=== PATIENT | male | born 1990 | race Caucasian/White ===

== ENCOUNTER 2016-09-18 21:03 | Emergency (ER) | payer OTHER | END 2016-09-18 23:45 | disposition home or self-care (01) | LOC: ER1 21:03 | DX: Z53.21 Procedure and treatment not carried out due to patient leaving prior to being seen by health care provider (principal) ==

== ENCOUNTER 2016-10-22 14:19 | Emergency (ER) | payer OTHER ==
[2016-10-22 20:09] LABS: RED BLOOD COUNT 5.1 M/UL (4.20-5.50); WHITE BLOOD COUNT 10.2 K/UL (4.5-11.0)
[2016-10-22 20:24] LABS: BUN/CREATININE RATIO 15 (0-10)
== END 2016-10-22 21:35 | disposition home or self-care (01) ==
LOC: ER1 14:19
PROVIDERS: Emergency Medicine
DX: R11.2 Nausea with vomiting, unspecified (principal); I48.91 Unspecified atrial fibrillation; I10 Essential (primary) hypertension; Z88.1 Allergy status to other antibiotic agents; Z88.8 Allergy status to other drugs, medicaments and biological substances; Z79.899 Other long term (current) drug therapy
CPT/HCPCS: 36415; 80053; 81001; 83690; 85025; 87086; 93005; 99283; J1200; Q0163

== ENCOUNTER 2016-11-20 14:34 | Emergency (ER) | payer OTHER ==
[2016-11-20 16:43] LABS: HEMOGLOBIN 15.1 gm/dl (14.0-17.5); RED BLOOD COUNT 5.16 M/UL (4.20-5.50); WHITE BLOOD COUNT 8.3 K/UL (4.5-11.0)
[2016-11-20 17:06] LABS: BUN/CREATININE RATIO 21 (0-10)
== END 2016-11-20 17:42 | disposition home or self-care (01) ==
LOC: ER1 14:34
PROVIDERS: Physician Assistant
DX: R00.2 Palpitations (principal); R06.02 Shortness of breath; R07.9 Chest pain, unspecified; R61 Generalized hyperhidrosis; I48.91 Unspecified atrial fibrillation; J45.909 Unspecified asthma, uncomplicated; Z88.1 Allergy status to other antibiotic agents; Z88.8 Allergy status to other drugs, medicaments and biological substances; Z79.899 Other long term (current) drug therapy
CPT/HCPCS: 36415; 71010; 80053; 82550; 82553; 83874; 84484; 85025; 85379; 93005; 99285

== ENCOUNTER 2016-11-27 02:29 | Emergency (ER) | payer OTHER ==
[2016-11-27 04:30] LABS: HEMOGLOBIN 14.1 gm/dl (14.0-17.5); RED BLOOD COUNT 4.75 M/UL (4.20-5.50); WHITE BLOOD COUNT 10.3 K/UL (4.5-11.0)
[2016-11-27 04:57] LABS: BUN/CREATININE RATIO 18 (0-10)
== END 2016-11-27 09:00 | disposition home or self-care (01) ==
LOC: ER1 02:29
PROVIDERS: Emergency Medicine
DX: R07.89 Other chest pain (principal); R06.02 Shortness of breath; R11.0 Nausea; R68.84 Jaw pain; I48.91 Unspecified atrial fibrillation; I10 Essential (primary) hypertension; Z79.82 Long term (current) use of aspirin; Z79.899 Other long term (current) drug therapy; Z88.1 Allergy status to other antibiotic agents; Z88.8 Allergy status to other drugs, medicaments and biological substances
CPT/HCPCS: 36415; 71010; 80053; 82550; 82553; 83874; 84443; 84484; 85025; 85379; 93005; 99285